=== PATIENT | female | born 1990 | race Caucasian/White ===

== ENCOUNTER → 2017-02-16 | Outpatient (CLI) | payer OTHER, BC | LOC: LAB 14:24 | DX: N91.2 Amenorrhea, unspecified (principal) | CPT/HCPCS: 36415; 84702 ==

== ENCOUNTER 2021-09-19 11:15 | Emergency (ER) | payer OTHER ==
[~2021-09-19 11:15] MED LIST: AMOXICILLIN875 MG PO; CEPHALEXIN500 MG PO; COLACE 100MG C100 MG PO; IBUPROFEN600 MG PO; MACROBID 100 M100 MG PO; PRENATAL VITAM1 EAC8 PO; TYLENOL PM EX-1 EACH PO
[2021-09-19 12:12] LABS: HEMOGLOBIN 14.7 gm/dl (12.3-15.3); RED BLOOD COUNT 5.14 M/UL (4.00-5.10); WHITE BLOOD COUNT 11.2 K/UL (4.5-11.0)
[2021-09-19 12:47] LABS: BUN/CREATININE RATIO 15 (0-10)
[2021-09-19] MEDS ORDERED: CEFUROXIME500 MG PO (15:34)
== END 2021-09-19 15:44 | disposition home or self-care (01) ==
LOC: ER1 11:15
PROVIDERS: Physician Assistant
DX: N39.0 Urinary tract infection, site not specified (principal); R55 Syncope and collapse
CPT/HCPCS: 70450; 71045; 73130; 80053; 81001; 82550; 82553; 83874; 84484; 84703; 85025; 93005; 99284

== ENCOUNTER → 2022-04-19 | Outpatient (CLI) | payer OTHER ==
[~2022-04-19] MED LIST changes: +CEFUROXIME500 MG PO
== END ==
LOC: LAB 12:47
DX: Z34.90 Encounter for supervision of normal pregnancy, unspecified, unspecified trimester (principal)
CPT/HCPCS: 36415; 84702

== ENCOUNTER 2022-05-02 16:03 | Emergency (ER) | payer OTHER ==
[2022-05-02 17:29] LABS: HEMOGLOBIN 14.9 gm/dl (12.3-15.3); RED BLOOD COUNT 5.06 M/UL (4.00-5.10); WHITE BLOOD COUNT 11.5 K/UL (4.5-11.0)
[2022-05-02 18:09] LABS: BUN/CREATININE RATIO 17 (0-10)
[2022-05-02] MEDS ORDERED: ONE-A-DAY PREN1 EAC1 PO (18:54)
[2022-05-02] MEDS ORDERED: [UNRECOGNIZED DRUG - REMARK] (18:55)
== END 2022-05-02 19:10 | disposition home or self-care (01) ==
LOC: ER1 16:03
PROVIDERS: Family Medicine
DX: O99.891 Other specified diseases and conditions complicating pregnancy (principal); R10.9 Unspecified abdominal pain; R10.819 Abdominal tenderness, unspecified site; Z90.89 Acquired absence of other organs; Z3A.01 Less than 8 weeks gestation of pregnancy
CPT/HCPCS: 80053; 81001; 84702; 85025; 99284

== ENCOUNTER 2022-05-10 16:04 | Emergency (ER) | payer OTHER ==
[~2022-05-10 16:04] MED LIST changes: +ONE-A-DAY PREN1 EAC1 PO; +[UNRECOGNIZED DRUG - REMARK]
[2022-05-10 17:58] LABS: RED BLOOD COUNT 4.75 M/UL (4.00-5.10); WHITE BLOOD COUNT 11.9 K/UL (4.5-11.0)
[2022-05-10 18:16] LABS: BUN/CREATININE RATIO 11 (0-10)
== END 2022-05-10 20:35 | disposition home or self-care (01) ==
LOC: ER1 16:04
PROVIDERS: Physician Assistant
DX: O20.9 Hemorrhage in early pregnancy, unspecified (principal); Z3A.01 Less than 8 weeks gestation of pregnancy
CPT/HCPCS: 80048; 81001; 84702; 85025; 86850; 86900; 86901; 96372; 99284; J2790; J2791

== ENCOUNTER 2022-05-22 19:26 | Emergency (ER) | payer OTHER ==
[2022-05-22 21:32] LABS: HEMOGLOBIN 13.5 gm/dl (12.3-15.3); RED BLOOD COUNT 4.59 M/UL (4.00-5.10); WHITE BLOOD COUNT 12.7 K/UL (4.5-11.0)
[2022-05-22 22:06] LABS: BUN/CREATININE RATIO 11 (0-10)
== END 2022-05-23 00:56 | disposition home or self-care (01) ==
LOC: ER1 19:26
PROVIDERS: Family Medicine
DX: O99.891 Other specified diseases and conditions complicating pregnancy (principal); R00.2 Palpitations; Z3A.09 9 weeks gestation of pregnancy; Z79.899 Other long term (current) drug therapy
CPT/HCPCS: 80053; 82550; 82553; 84439; 84443; 84484; 85025; 93005; 99285